=== PATIENT | female | born 1975 | race Caucasian/White ===

== ENCOUNTER 2021-11-08 12:28 | Emergency (ER) | payer BC ==
[2021-11-08 13:06] VITALS: BP 116/76; PULSE 78; TEMP 97.8; BMI 38.9
[2021-11-08 14:27] LABS: BASO % 0.7 % (0-2.0); EOS % 1.2 % (0-4.5); HEMATOCRIT 38.2 % (32.4-45.2); HEMOGLOBIN 12.8 GM/dL (10.7-15.3); MCH 28.6 pg (25.7-33.7); MCHC 33.4 g/dl (32.0-36.0); MEAN CELL VOLUME 85.5 fl (80-96); MEAN PLT VOLUME 9.6 fl (7.5-11.1); MONO % 12.5 % (3.8-10.2); NEUT % 37.6 % (42.8-82.8); PLATELET COUNT 280 10^3/uL (134-434); RBC 4.47 M/mm3 (3.60-5.2); RDW 12.9 % (11.6-15.6); WHITE BLOOD COUNT 8.4 K/mm3 (4.0-10.0)
[2021-11-08 14:47] LABS: CALCIUM 8.7 mg/dL (8.5-10.1)
[2021-11-08 14:48] LABS: ALBUMIN 4.1 g/dl (3.4-5.0); BLOOD UREA NITROGEN 9.2 mg/dL (7-18)
[2021-11-08 14:51] LABS: CREATININE 0.8 mg/dL (0.55-1.3)
[2021-11-08 14:52] LABS: TOT PROT 7.6 g/dl (6.4-8.2)
[2021-11-08 14:53] LABS: BILIRUBIN,TOTAL 0.5 mg/dL (0.2-1)
== END 2021-11-08 17:46 | disposition home or self-care (01) ==
LOC: JER 12:28
DX: N93.9 Abnormal uterine and vaginal bleeding, unspecified (principal); N88.8 Other specified noninflammatory disorders of cervix uteri
CPT/HCPCS: 36415; 76830-TC; 80053; 84703; 85025; 99284-25